=== PATIENT | female | born 1930 | race Caucasian/White ===

== ENCOUNTER 2021-10-01 00:49 | Inpatient (IN) | payer MEDICARE, BC ==
[~2021-10-01] VITALS: Ht 167.6 cm; Wt 75.5 kg
[2021-10-01 01:46] LABS: HEMOGLOBIN 12.8 gm/dl (12.3-15.3); RED BLOOD COUNT 4.19 M/UL (4.00-5.10); WHITE BLOOD COUNT 16.9 K/UL (4.5-11.0)
[2021-10-01 02:29] LABS: BUN/CREATININE RATIO 60 (0-10)
[2021-10-01 06:21] LABS: HEMOGLOBIN 11.9 gm/dl (12.3-15.3); RED BLOOD COUNT 3.91 M/UL (4.00-5.10)
[2021-10-01 07:01] LABS: BUN/CREATININE RATIO 69 (0-10)
[2021-10-01] MEDS ORDERED: BACTRIM DS TAB1 EACH PO (11:51)
[2021-10-01] MEDS ORDERED: OXYBUTYNIN CHLOR5 MG PO (11:51)
[2021-10-02 02:46] LABS: HEMOGLOBIN 11.7 gm/dl (12.3-15.3); RED BLOOD COUNT 3.84 M/UL (4.00-5.10); WHITE BLOOD COUNT 11.3 K/UL (4.5-11.0)
[2021-10-02 03:07] LABS: BUN/CREATININE RATIO 62 (0-10)
--- NOTE | 2021-10-02 14:28 | NUR ---
Patient refused enema, stating she has had multiple and did not need another. Patient states enemas are partially to blame for the abdominal distention she is currently suffering.
[2021-10-03 07:53] LABS: BUN/CREATININE RATIO 70 (0-10)
[2021-10-05 07:13] LABS: HEMOGLOBIN 11.2 gm/dl (12.3-15.3); RED BLOOD COUNT 3.74 M/UL (4.00-5.10); WHITE BLOOD COUNT 11.6 K/UL (4.5-11.0)
[2021-10-05 07:45] LABS: BUN/CREATININE RATIO 64 (0-10)
[2021-10-07] MEDS ORDERED: POLYETHYLENE GL17 GM PO (11:03)
[2021-10-07] MEDS ORDERED: HYDROCODON-ACE1 EAC4 PO (11:03)
[2021-10-07] MEDS ORDERED: BISACODYL10 MG PR (11:03)
[2021-10-07] MEDS ORDERED: COZAAR 25MG TAB25 MG PO (11:08)
[2021-10-07] MEDS ORDERED: NYSTATIN60 GM TOP (11:08)
[2021-10-07] MEDS ORDERED: METOCLOPRAMIDE H5 MG PO (11:08)
[2021-10-07] MEDS ORDERED: HUMALOG 10100 UNITS/ SC (11:08)
[2021-10-07 15:22] LABS: HEMOGLOBIN 12.6 gm/dl (12.3-15.3); WHITE BLOOD COUNT 13.9 K/UL (4.5-11.0)
[2021-10-07 15:38] LABS: RED BLOOD COUNT 4.14 M/UL (4.00-5.10)
--- NOTE | 2021-10-07 17:00 | NUR ---
PATIENT HAS REFUSED LAB DRAWS EARLIER IN THE DAY DUE TO BEING CONFUSED. LAB CAME BACK THIS AFTERNOON AND SOME ABNORMAL LABS VALUE RESULTED. CALLED DR. SHIELDS TO SEE IF IT WAS STILL OK FOR PATIENT TO BE DISCHARGED TO [facility].
--- NOTE | 2021-10-07 17:15 | NUR ---
REPORT CALLED TO VALERY AT [facility]. CALLED [facility] TO TRANSPORT PATIENT.
--- NOTE | 2021-10-07 18:00 | NUR ---
RECEIVED RETURN CALL FROM DR. SHIELDS. OK FOR PATIENT TO BE DISCHARGED PER HER ORDER.
--- NOTE | 2021-10-07 18:20 | NUR ---
WENT IN TO PATIENTS ROOM TO REMOVE TELE MONITOR AND IV DUE TO PATIENT BEING DISCHARGED. PATIENT WAS UP IN CHAIR. NOTICED THAT PATIENT WAS UNRESPONSIVE AND PALE, STILL WARM TO TOUCH. . MOVIE WRITER CALLED AT THIS TIME. TRANSFERRED PATIENT TO BED WITH [facility]. PATIENT THEN DID NOT HAVE A PULSE AND A CODE [facility] WAS CALLED. CONTACTED PATIENT [facility] FOR DR. SHIELDS TO SPEAK WITH. ALSO, CONTACTED [facility] AND [facility] THAT DISCHARGE AND PICKUP WAS CANCELLED. SEE CODE SHEET
--- NOTE | 2021-10-07 20:20 | NUR ---
1901 PT ARRIVED ON THE FLOOR PEA, CODE PER CODE SHEETS, TIME OF [address] FLORES, NO HEART TONES, NO RESPIRATORY EFFORT OR CORNEA REFLEX.
--- NOTE | 2021-10-07 22:10 | NUR ---
CAR RENTAL MANAGERMARILU ALLEN CONTACTED PER [employer] INTE[employer]ATION ENGINEER DUE TO NOT BEING ABLE TO CONTACAT FAMILY FOR DISPOSITION OF BODY. FAMILY WAS NOT ABLE TO BE REACHED BY DR PETERSON DURING OR POST CODE OF PATIENT. I PHONED NUMBERS ON PATIENTS FACE SHEET WITHOUT SUCCESS OF FAMILY CONTACT. DAY SHIFT NURSE STATED PT'S SON WAS AT THE HOSPITAL TODAY BUT DECLINED TO MAKE ANY DECISIONS FOR THE PATIENT SAYING SHE COULD MAKE HER OWN DECISIONS. HIS NAME AND CONTACT INFROMATION ARE UNKNOWN. CAREGIVER ELÍAS WAS CONTACTED, SHE STATED SHE WOULD TRY TO CONTACT FAMILY BY [employer] BUT SHE DOES NOT HAVE ANY PHONE NUMBERS FOR FAMILY. CAR RENTAL MANAGERMARILU ALLEN STATED HE WOULD BE HERE TO LEARNING COACH THE PATIENT.
== END 2021-10-07 22:51 | disposition expired | DRG 564 ==
LOC: ER1 00:49 → MED SURG 4 04:15 → CDU 04:15 → MED SURG 4 04:55 → CCU 10-07 19:03
PROVIDERS: Internal Medicine; Internal Medicine Infectious Disease; Physician Assistant; ADMIT Internal Medicine
PROC: 0HBRXZZ Excision of Toe Nail, External Approach (ICD-10-PCS; 2021-10-04)
PROC: 0HBRXZZ Excision of Toe Nail, External Approach (ICD-10-PCS; 2021-10-04)
PROC: 0HBRXZZ Excision of Toe Nail, External Approach (ICD-10-PCS; 2021-10-04)
PROC: 0HBRXZZ Excision of Toe Nail, External Approach (ICD-10-PCS; 2021-10-04)
PROC: 0BH17EZ Insertion of Endotracheal Airway into Trachea, Via Natural or Artificial Opening (ICD-10-PCS; principal; 2021-10-07)
PROC: 5A1935Z Respiratory Ventilation, Less than 24 Consecutive Hours (ICD-10-PCS; 2021-10-07)
PROC: 5A12012 Performance of Cardiac Output, Single, Manual (ICD-10-PCS; 2021-10-07)
PROC: 5A2204Z Restoration of Cardiac Rhythm, Single (ICD-10-PCS; 2021-10-07)
DX: T79.6XXA Traumatic ischemia of muscle, initial encounter (principal); G93.41 Metabolic encephalopathy; J96.01 Acute respiratory failure with hypoxia; S22.080A Wedge compression fracture of T11-T12 vertebra, initial encounter for closed fracture; S32.010A Wedge compression fracture of first lumbar vertebra, initial encounter for closed fracture; I97.121 Postprocedural cardiac arrest following other surgery; E87.2 Acidosis; S82.65XA Nondisplaced fracture of lateral malleolus of left fibula, initial encounter for closed fracture; W18.30XA Fall on same level, unspecified, initial encounter; Y93.9 Activity, unspecified; Y92.009 Unspecified place in unspecified non-institutional (private) residence as the place of occurrence of the external cause; K59.00 Constipation, unspecified; J45.909 Unspecified asthma, uncomplicated; E87.6 Hypokalemia; S00.93XA Contusion of unspecified part of head, initial encounter; L89.616 Pressure-induced deep tissue damage of right heel; L89.152 Pressure ulcer of sacral region, stage 2; E86.0 Dehydration; E11.65 Type 2 diabetes mellitus with hyperglycemia; F02.80 Dementia in other diseases classified elsewhere, unspecified severity, without behavioral disturbance, psychotic disturbance, mood disturbance, and anxiety; B35.1 Tinea unguium; Z88.8 Allergy status to other drugs, medicaments and biological substances; R00.1 Bradycardia, unspecified; G30.1 Alzheimer's disease with late onset
CPT/HCPCS: 31500; 36415; 36600; 70450; 71045; 72125; 72128; 73610; 74018; 80048; 80053; 81001; 82140; 82550; 82553; 82607; 82803; 82962; 83036; 83605; 83690; 83735; 83880; 84443; 84484; 85025; 85027; 85610; 87040; 87086; 92950; 93005; 94002; 97110; 97161; 97165; 97530; 97530-GP-CQ; 99285; J0171; J0282; J0461; J1650; J2001; J2060; J3486